=== PATIENT | female | born 1985 | race Caucasian/White ===

== ENCOUNTER 2016-10-23 22:10 | Inpatient (IN) | payer MEDICARE ==
[2016-10-23 23:13] LABS: HEMOGLOBIN 11.7 gm/dl (12.3-15.3); RED BLOOD COUNT 4.08 M/UL (4.00-5.10); WHITE BLOOD COUNT 19.2 K/UL (4.5-11.0)
[2016-10-25 03:25] LABS: HEMOGLOBIN 11.4 gm/dl (12.3-15.3); RED BLOOD COUNT 4.03 M/UL (4.00-5.10)
[2016-10-25 03:26] LABS: WHITE BLOOD COUNT 10.1 K/UL (4.5-11.0)
[2016-10-26 09:23] LABS: HEMOGLOBIN 11.3 gm/dl (12.3-15.3); WHITE BLOOD COUNT 7.8 K/UL (4.5-11.0)
== END 2016-10-28 18:02 | disposition home or self-care (01) | DRG 781 ==
LOC: GENOP 22:10 → OB 22:55
PROVIDERS: Obstetrics & Gynecology; ADMIT Obstetrics & Gynecology
PROC: 0U9M0ZX Drainage of Vulva, Open Approach, Diagnostic (ICD-10-PCS; principal; 2016-10-26 14:30)
DX: O23.593 Infection of other part of genital tract in pregnancy, third trimester (principal); N76.4 Abscess of vulva; B95.2 Enterococcus as the cause of diseases classified elsewhere; Z3A.32 32 weeks gestation of pregnancy; O99.353 Diseases of the nervous system complicating pregnancy, third trimester; G35 Multiple sclerosis; O99.213 Obesity complicating pregnancy, third trimester; O24.410 Gestational diabetes mellitus in pregnancy, diet controlled
CPT/HCPCS: 36415; 80202; 81001; 82962; 85025; 87070; 87077; 87186; 87205; 96360; 96374; G0378; J1815; J1817; J2270; J2300; J2405; J2590; J2795; J3370; J7030; J7050; J7070; J7120

== ENCOUNTER → 2016-10-29 | Outpatient (CLI) | payer MEDICARE | LOC: OPSV 07:45 | DX: N76.4 Abscess of vulva (principal) | CPT/HCPCS: 96365; 96366; 96375; J2270; J3370; J7030 ==

== ENCOUNTER → 2016-10-30 | Outpatient (CLI) | payer MEDICARE ==
[~2016-10-30] VITALS: Ht 170.2 cm; Wt 131.5 kg
== END ==
LOC: OPSV 08:15
DX: N76.4 Abscess of vulva (principal)
CPT/HCPCS: 96365; 96366; 96375; J2270; J3370; J7030

== ENCOUNTER → 2016-10-30 | Outpatient (CLI) | payer MEDICARE | LOC: OPSV 20:00 → EROP 20:03 | DX: N76.4 Abscess of vulva (principal) | CPT/HCPCS: 96365; 96366; J3370 ==

== ENCOUNTER → 2016-11-01 | Outpatient (CLI) | payer MEDICARE ==
[~2016-11-01] VITALS: Ht 170.2 cm; Wt 122.5 kg
== END ==
LOC: OPSV 10-31 08:00
DX: N76.4 Abscess of vulva (principal)
CPT/HCPCS: 96374; J2270

== ENCOUNTER 2016-11-11 13:17 | Outpatient (CLI) | payer MEDICARE ==
[2016-11-11 14:34] LABS: URINE TOTAL PROTEIN 39 mg/dl
[2016-11-11 14:59] LABS: HEMOGLOBIN 12.2 gm/dl (12.3-15.3); RED BLOOD COUNT 4.29 M/UL (4.00-5.10); WHITE BLOOD COUNT 10.6 K/UL (4.5-11.0)
[2016-11-11 15:20] LABS: BUN/CREATININE RATIO 22 (0-10)
== END 2016-11-11 18:16 | disposition home or self-care (01) ==
LOC: GENOP 13:17
PROVIDERS: Obstetrics & Gynecology
DX: O10.919 Unspecified pre-existing hypertension complicating pregnancy, unspecified trimester (principal)
CPT/HCPCS: 36415; 80053; 82962; 83615; 84156; 84550; 85025; 96372; J1815

== ENCOUNTER 2016-11-17 17:20 | Observation (INO) | payer MEDICARE ==
[2016-11-17 18:29] LABS: RED BLOOD COUNT 4.51 M/UL (4.00-5.10); WHITE BLOOD COUNT 11.3 K/UL (4.5-11.0)
[2016-11-17 18:46] LABS: BUN/CREATININE RATIO 20 (0-10)
== END 2016-11-17 20:12 | disposition home or self-care (01) ==
LOC: GENOP 17:20 → OB 17:21 → GENOP 18:01 → OB 20:12 → GENOP 20:12
PROVIDERS: ADMIT Obstetrics & Gynecology
DX: O13.5 Gestational [pregnancy-induced] hypertension without significant proteinuria, complicating the puerperium (principal); Z79.899 Other long term (current) drug therapy; Z86.69 Personal history of other diseases of the nervous system and sense organs
CPT/HCPCS: 36415; 80053; 81001; 85025; G0378; G0463

== ENCOUNTER 2016-11-24 15:32 | Inpatient (IN) | payer MEDICARE ==
[~2016-11-24] VITALS: Ht 170.2 cm; Wt 129.7 kg
[2016-11-24 16:18] LABS: HEMOGLOBIN 12.5 gm/dl (12.3-15.3); RED BLOOD COUNT 4.41 M/UL (4.00-5.10); WHITE BLOOD COUNT 10.9 K/UL (4.5-11.0)
[2016-11-24 16:39] LABS: BUN/CREATININE RATIO 19 (0-10)
[2016-11-26 04:28] LABS: HEMOGLOBIN 13.2 gm/dl (12.3-15.3)
== END 2016-11-27 14:20 | disposition home or self-care (01) | DRG 775 ==
LOC: GENOP 15:32 → OB 15:44
PROVIDERS: Obstetrics & Gynecology; ADMIT Obstetrics & Gynecology
PROC: 10E0XZZ Delivery of Products of Conception, External Approach (ICD-10-PCS; principal; 2016-11-25)
PROC: 10907ZC Drainage of Amniotic Fluid, Therapeutic from Products of Conception, Via Natural or Artificial Opening (ICD-10-PCS; 2016-11-25)
PROC: 0HQ9XZZ Repair Perineum Skin, External Approach (ICD-10-PCS; 2016-11-25)
PROC: 0HB9XZZ Excision of Perineum Skin, External Approach (ICD-10-PCS; 2016-11-25)
PROC: 3E0234Z Introduction of Serum, Toxoid and Vaccine into Muscle, Percutaneous Approach (ICD-10-PCS; 2016-11-25)
DX: O14.14 Severe pre-eclampsia complicating childbirth (principal); O24.12 Pre-existing type 2 diabetes mellitus, in childbirth; O99.354 Diseases of the nervous system complicating childbirth; O99.214 Obesity complicating childbirth; E66.8 Other obesity; E11.65 Type 2 diabetes mellitus with hyperglycemia; G35 Multiple sclerosis; N36.8 Other specified disorders of urethra; O70.0 First degree perineal laceration during delivery; O99.334 Smoking (tobacco) complicating childbirth; F17.210 Nicotine dependence, cigarettes, uncomplicated; Z3A.36 36 weeks gestation of pregnancy; Z37.0 Single live birth; Z79.4 Long term (current) use of insulin; Z80.9 Family history of malignant neoplasm, unspecified; Z82.49 Family history of ischemic heart disease and other diseases of the circulatory system; Z83.3 Family history of diabetes mellitus; Z84.89 Family history of other specified conditions; Z23 Encounter for immunization
CPT/HCPCS: 36415; 51702; 80053; 81001; 82800; 82962; 83615; 84550; 85014; 85018; 85025; 90715; J1815; J1817; J2300; J2405; J2590; J2795; J3010; J3430; J7120

== ENCOUNTER 2020-07-04 12:03 | Emergency (ER) | payer MEDICARE, OTHER ==
[2020-07-04 13:45] LABS: HEMOGLOBIN 13.6 gm/dl (12.3-15.3); RED BLOOD COUNT 4.28 M/UL (4.00-5.10); WHITE BLOOD COUNT 13.9 K/UL (4.5-11.0)
[2020-07-04 14:07] LABS: BUN/CREATININE RATIO 14 (0-10)
[2020-07-04] MEDS ORDERED: OMNICEF 300 MG300 MG PO (17:00)
== END 2020-07-04 17:36 | disposition home or self-care (01) ==
LOC: ER1 12:03
PROVIDERS: Emergency Medicine
DX: N39.0 Urinary tract infection, site not specified (principal)
CPT/HCPCS: 80053; 81001; 83690; 84703; 85025; 87086; 96365; 96375; 99284; J0696; J2270; J2405; J7030; Q9967

== ENCOUNTER 2020-11-05 12:02 | Emergency (ER) | payer MEDICARE, OTHER ==
[~2020-11-05 12:02] MED LIST: OMNICEF 300 MG300 MG PO
[2020-11-05 13:35] LABS: HEMOGLOBIN 12.3 gm/dl (12.3-15.3); RED BLOOD COUNT 4.02 M/UL (4.00-5.10); WHITE BLOOD COUNT 7.9 K/UL (4.5-11.0)
[2020-11-05 13:55] LABS: BUN/CREATININE RATIO 14 (0-10)
[2020-11-05] MEDS ORDERED: CEFUROXIME500 MG PO (16:23)
== END 2020-11-05 16:35 | disposition home or self-care (01) ==
LOC: ER1 12:02
PROVIDERS: Physician Assistant
DX: N39.0 Urinary tract infection, site not specified (principal); R91.1 Solitary pulmonary nodule; N83.8 Other noninflammatory disorders of ovary, fallopian tube and broad ligament; E11.9 Type 2 diabetes mellitus without complications; F17.210 Nicotine dependence, cigarettes, uncomplicated
CPT/HCPCS: 80053; 81001; 82962; 83690; 84703; 85025; 87086; 96374; 99284; J0696; J7030; Q9967

== ENCOUNTER 2021-02-08 00:01 | Emergency (ER) | payer MEDICARE, OTHER ==
[~2021-02-08 00:01] MED LIST changes: +CEFUROXIME500 MG PO
== END 2021-02-08 01:29 | disposition home or self-care (01) ==
LOC: ER1 00:01
DX: U07.1 COVID-19 (principal); E10.9 Type 1 diabetes mellitus without complications; F17.210 Nicotine dependence, cigarettes, uncomplicated
CPT/HCPCS: 99283; U0003

== ENCOUNTER → 2021-08-11 | Outpatient (CLI) | payer MEDICARE, OTHER | LOC: KOH-I 08:30 | DX: R91.1 Solitary pulmonary nodule (principal); R91.8 Other nonspecific abnormal finding of lung field | CPT/HCPCS: 71250 ==